=== PATIENT | female | born 1970 | race Caucasian/White ===

== ENCOUNTER 2022-03-22 15:19 | Outpatient (REF) | payer BC, SELFPAY ==
[2022-03-22 15:42] LABS: MANUAL DIFF FLAG NO
[2022-03-22 15:52] LABS: Basophils Absolute Auto 0.1 X10*3/uL (0.0-0.2); Basophils Percent Auto 0.6 % (0-2); Eosinophils Absolute Auto 0.2 X10*3/uL (0.0-0.4); Eosinophils Percent Auto 2.6 % (0-4); Hematocrit 43.2 % (37.0-47.0); Hemoglobin 14.5 g/dl (12.0-16.0); Imm Gran Abs Auto 0.02 X10*3/uL (0.00-0.03); Imm Gran Pct Auto 0.2 % (0.0-0.4); Lymphocytes Absolute Auto 2.1 X10*3/uL (1.2-4.9); Lymphocytes Percent Auto 25.1 % (20-40); Mean Corpuscular HGB Conc 33.6 g/dl (31.0-35.0); Mean Corpuscular Hemoglobin 30.7 pg (27.0-33.0); Mean Corpuscular Volume 91.5 fL (80.0-98.0); Mean Platelet Volume 8.6 fL (9.4-12.3); Monocytes Absolute Auto 0.6 X10*3/uL (0.1-1.2); Monocytes Percent Auto 6.7 % (2-11); Neutrophils Absolute Auto 5.5 x10*3/uL (2.0-8.3); Neutrophils Percent Auto 64.8 % (45-73); Platelet Count 296 X10*3/uL (160-400); Red Blood Count 4.72 X10*6/uL (4.20-5.50); Red Cell Distribution Width 12.2 % (11.0-16.0); White Blood Count 8.4 X10*3/uL (4.8-10.8)
[2022-03-22 16:07] LABS: Alanine Aminotransferase 9 U/L (0-31); Albumin Level 4.5 g/dL (3.5-5.0); Alkaline Phosphatase 63 U/L (39-117); Anion Gap 10 (12-20); Aspartate Amino Transferase 15 U/L (5-31); Bilirubin Total 0.8 mg/dL (0.0-1.0); Blood Urea Nitrogen 18 mg/dL (9-16); C Reactive Protein 0.31 mg/dL (< or = 0.50); Calcium 9.8 mg/dL (8.4-10.2); Carbon Dioxide 27 mmol/L (22-29); Chloride 105 mmol/L (96-108); Estimated Glomerular Filt Rate > 60; Glucose Random 92 mg/dL (60-115); Lactate Dehydrogenase 155 U/L (122-220); Potassium 4.2 mmol/L (3.3-5.1); Sodium 138 mmol/L (135-145); Total Protein 7.3 g/dL (6.5-8.0)
[2022-03-22 16:31] LABS: Erythrocyte Sedimentation Rate 16 MM/HR (0-20)
[2022-03-26 14:48] LABS: Cyclic Citrullinated Peptide <16 UNITS
[2022-03-27 02:04] LABS: Aldolase 5.2 U/L (<=8.1)
== END 2022-03-22 15:20 | disposition home or self-care (01) ==
LOC: HO.LAB 15:19
PROVIDERS: PCP Student in an Organized Health Care Education/Training Program; Visit Provider Student in an Organized Health Care Education/Training Program
DX: G72.9 Myopathy, unspecified (principal); M25.542 Pain in joints of left hand
CPT/HCPCS: 36415; 80053; 82085; 82550; 83615; 85025; 85652; 86140; 86200

== ENCOUNTER → 2022-04-24 07:37 | Outpatient (BNVA) | payer BC, SELFPAY | PROVIDERS: PCP Student in an Organized Health Care Education/Training Program; Visit Provider Student in an Organized Health Care Education/Training Program | DX: M79.7 Fibromyalgia (principal) ==

== ENCOUNTER 2023-03-08 13:37 | Outpatient (AMB) | payer OTHER, SELFPAY ==
--- NOTE | 2023-03-08 13:39 | MHC.OFFVIS ---
Intake Vital Signs 03/08/23 13:40 Height 5 ft 2.5 in Weight 154 lb 12.232 oz BMI 27.9 BP 98/60 Blood Pressure Location Rt brachial Position Sitting Pulse 89 Pulse Source Pulse Oximeter Temp 97.8 F Temp Source Skin Pulse Oximetry (%) 97 Intake Visit Reasons: FM Intake Note: Pt last seen 04/24/22, presents today for follow up. Lots of flare ups Dental Biller Required: No Information Interpreted: clinical only Accompanied by: Self / Same As Patient Allergies rizatriptan [From Maxalt] Allergy (Intermediate, Verified 03/08/23 13:43) chest tightness shellfish derived Allergy (Intermediate, Verified 03/08/23 13:43) throat swelling sumatriptan [From Imitrex] Allergy (Intermediate, Verified 03/08/23 13:43) palpitations aspirin Allergy (Unknown, Verified 03/08/23 13:43) Unknown strawberries Allergy (Intermediate, Uncoded 03/08/23 13:43) headaches Medication List - Last Reconciled 03/08/23 by Zulma Farah MD azelastine 2 sprays intranasal BID tfcwixihit-jecgnejubmsrn-deoj 50-300-40 mg (Fioricet) 1 cap PO Q8H PRN cholecalciferol (vitamin D3) 50 mcg PO DAILY diclofenac sodium 1% 2 grams topical QID docusate sodium (Colace) 250 mg PO DAILY epinephrine (EpiPen) 0.3 mg IM Q4H PRN fexofenadine (Allergy Relief (fexofenadine)) 180 mg PO DAILY levothyroxine 50 mcg PO DAILY omeprazole 20 mg PO DAILY trazodone 50 mg PO BEDTIME HPI HPI Comments History of Present Illness Details 52-year-old female with fibromyalgia returns for follow-up. She stated that over the last 10 months she has been doing stationary bike 3 days a week from 25-40 minutes. She also does stretching exercises for 15-20 minutes 3 days a week. Patient tries to follow sleep hygiene practices as much as possible, she sleeps in the same time every night and wakes up in the same time every morning, she gets about 5-6 hours of sleep. She continues to go to group therapy. She has not been evaluated by a psychotherapist or a psychiatrist. She was started on trazodone 2-3 weeks ago 50 mg nightly by her PCP, she states that it was not helpful. Patient states that she is worse overall. Continues to have pain every day, worse in the morning, her has to help her up from the bed and she has to take a warm bath in order to loosen up. Initial history: This is a 51-year-old female with a past medical history of allergic rhinitis, GERD, migraines who presents for evaluation of diffuse pain. The condition started many years ago with diffuse body pain especially her upper back, shoulders, hands, back, legs. Pain is generally worse in the morning, she has difficulty getting up from bed, her has to help her. She improves when she gets a hot shower. Her overall pain is improved in about 2 hours. She sometimes has difficulty gripping objects and opening jars. She has generalized weakness. But denies difficulty getting up from toilet seat. She denies any swollen joints. He denies any skin rashes. She mentions that her sister has rheumatoid arthritis and a niece with lupus. Patient has had migraines for years which have improved with Botox injections. She denies any fevers, weight loss. Denies any recent blood or froth in urine [facility] Medical History (Updated 04/24/22 @ 08:07 by Zulma Farah MD) Paresthesia Migraines Fibromyalgia GERD (gastroesophageal reflux disease) Chronic allergic rhinitis Anemia Surgical History H/O partial thyroidectomy Hx of laparoscopic gastric banding Family History Mother Asthma Hx of CABG Diabetes COPD (chronic obstructive pulmonary disease) Father Alcohol abuse Drug abuse Prostate cancer Heart disease Rheumatoid arthritis Maternal Grandmother Uterine cancer Ovarian cancer Family/Other Lupus Sister Rheumatoid arthritis Social History Household Members: Spouse Alcohol intake: current Alcohol intake frequency: does not drink Patient Tobacco Use Status: Never used Tobacco Current occupational status: employed 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 [employer] Review of Systems Const Reports fatigue and Reports weakness Musc Reports back pain, Reports arthralgias, Denies joint swelling, Reports muscle weakness and Reports stiffness Neuro Reports weakness Psych Reports abnormal sleep pattern Endo Reports fatigue Physical Exam Vital Signs: Last Vital Signs Temp 97.8 F 03/08/23 13:40 Pulse 89 03/08/23 13:40 BP 98/60 03/08/23 13:40 Pulse Ox 97 03/08/23 13:40 BMI result Body Mass Index 27.9 Const General: cooperative, healthy appearing, comfortable, no acute distress and well developed Nutritional Appearance: overweight Orientation/consciousness: patient oriented x3 Limitations: no limitations HEENT Head: Yes normocephalic and Yes atraumatic Resp Effort & Inspection: normal respiratory effort and able to speak in complete sentences Neuro General: patient oriented x3 Extrem Other: No synovitis 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 Since last visit patient has been working on her sleep hygiene. She gets 5-6 hours of sleep nightly. She does 3 days of stationary bike exercises and 3 days of stretching. She continues to go to group therapy but has not been evaluated by a psychotherapist or a psychiatrist. 2-3 week trazodone trial was not helpful. I advised patient to seek evaluation by a psychotherapist and/or a psychiatrist. Patient can follow-up with her PCP at this point. Medications such as duloxetine, gabapentin, Lyrica, Savella can be tried for fibromyalgia. Follow-up with me as needed Plan I spent 15 minutes reviewing patient's chart, evaluating patient, ordering diagnostic workup, counseling patient and documenting in the chart Coding Level of Care Code Est Pt Level 4 (12401) Diagnoses Myopathy G72.9 Fibromyalgia M79.7
[2023-03-08 13:40] VITALS: BP 98/60; PULSE 89; TEMP 36.6; O2SAT 97; BMI 27.9
== END 2023-03-08 14:05 | disposition home or self-care (01) ==
PROVIDERS: PCP Student in an Organized Health Care Education/Training Program; Visit Provider Student in an Organized Health Care Education/Training Program
DX: G72.9 Myopathy, unspecified (principal); M79.7 Fibromyalgia
CPT/HCPCS: 99214

== ENCOUNTER → 2023-03-08 13:37 | Outpatient (BNVA) | payer BC, SELFPAY | PROVIDERS: PCP Student in an Organized Health Care Education/Training Program; Visit Provider Student in an Organized Health Care Education/Training Program ==